=== PATIENT | female | born 1950 | race Caucasian/White ===

== ENCOUNTER → 2023-09-07 09:19 | Outpatient (REF) | payer OTHER, SELFPAY | LOC: HWRAD 09:19 | PROVIDERS: ATTENDING PHYSICIAN Physician Assistant Medical | DX: Z13.820 Encounter for screening for osteoporosis (principal); Z12.31 Encounter for screening mammogram for malignant neoplasm of breast | CPT/HCPCS: 77063; 77067; 77080 ==

== ENCOUNTER → 2023-12-13 11:44 | Outpatient (REF) | payer OTHER, SELFPAY | LOC: HWRAD 11:44 | PROVIDERS: ATTENDING PHYSICIAN Physician Assistant Medical | DX: J06.9 Acute upper respiratory infection, unspecified (principal) | CPT/HCPCS: 71046 ==

== ENCOUNTER → 2023-12-15 14:30 | Outpatient (REF) | payer OTHER, SELFPAY | LOC: RAD 14:30 | PROVIDERS: ATTENDING PHYSICIAN Physician Assistant Medical | DX: R91.8 Other nonspecific abnormal finding of lung field (principal) | CPT/HCPCS: 71260; Q9967 ==

== ENCOUNTER → 2023-12-22 09:13 | Outpatient (REF) | payer OTHER, SELFPAY | LOC: HWRAD 09:13 | PROVIDERS: ATTENDING PHYSICIAN Internal Medicine Critical Care Medicine; FAMILY PHYSICIAN Physician Assistant Medical | DX: R91.1 Solitary pulmonary nodule (principal) | CPT/HCPCS: 71046 ==

== ENCOUNTER 2024-01-03 12:30 | Day surgery (SDC) | payer OTHER, SELFPAY ==
[2023-12-27 08:54] LABS: INR 0.95; PT 12.5 Sec (11.4-14.6)
[2023-12-27 08:55] LABS: APTT 30.5 Sec (23.4-35.0)
[2023-12-28 10:53] VITALS: BMI 24.4
[2024-01-03] VITALS (12 sets, daily range): BP systolic 102–139; BP diastolic 53–123; BMI 25.1
== END 2024-01-03 17:34 | disposition home or self-care (01) ==
LOC: GI 12:30
PROVIDERS: ATTENDING PHYSICIAN Internal Medicine Critical Care Medicine; FAMILY PHYSICIAN Nurse Practitioner Adult Health
DX: R91.8 Other nonspecific abnormal finding of lung field (principal); D14.32 Benign neoplasm of left bronchus and lung; J18.9 Pneumonia, unspecified organism
CPT/HCPCS: 31629; 31624; 31623; 31627; 31654; 88172; 88173; 88305; 71045; 76000; 85610; 85730; 87070; 87102; 87116; 87205; 88112; 88333; 93005; C1887

== ENCOUNTER → 2024-02-14 08:19 | Outpatient (REF) | payer OTHER, SELFPAY | LOC: HWRAD 08:19 | PROVIDERS: ATTENDING PHYSICIAN Internal Medicine Critical Care Medicine; FAMILY PHYSICIAN Physician Assistant Medical | DX: R91.8 Other nonspecific abnormal finding of lung field (principal) | CPT/HCPCS: 71250 ==

== ENCOUNTER → 2024-08-08 09:11 | Outpatient (REF) | payer OTHER, SELFPAY | LOC: HWRAD 09:11 | PROVIDERS: ATTENDING PHYSICIAN Internal Medicine Critical Care Medicine; FAMILY PHYSICIAN Physician Assistant Medical | DX: R91.1 Solitary pulmonary nodule (principal) | CPT/HCPCS: 71250 ==

== ENCOUNTER → 2025-04-11 08:19 | Outpatient (REF) | payer OTHER, SELFPAY | LOC: HWWDC 08:19 | PROVIDERS: ATTENDING PHYSICIAN Physician Assistant Medical | DX: Z12.31 Encounter for screening mammogram for malignant neoplasm of breast (principal) | CPT/HCPCS: 77063; 77067 ==